=== PATIENT | female | born 1995 | race Caucasian/White ===

== ENCOUNTER 2021-04-26 15:24 | Emergency (ER) | payer MEDICAID, SELFPAY ==
[2021-04-26 15:31] VITALS: BP 145/99; PULSE 112; RESP 18; TEMP 36.7; O2SAT 98; BMI 24.1
--- NOTE | 2021-04-26 16:06 | CTR_ITS ---
PROCEDURE INFORMATION: Exam: CT Abdomen And Pelvis With Contrast Exam date and time: 04/26/2021 4:06 PM Age: 26 years old Clinical indication: Generalized; Patient HX: Lower abdominal pain with nausea and vomiting x8 days; Additional info: Lower abd pain, significant n/v TECHNIQUE: Imaging protocol: Computed tomography of the abdomen and pelvis with contrast. Radiation optimization: All CT scans at this facility use at least one of these dose optimization techniques: automated exposure control; mA and/or kV adjustment per patient size (includes targeted exams where dose is matched to clinical indication); or iterative reconstruction. Contrast material: OMNI 300; Contrast volume: 95 ml; Contrast route: INTRAVENOUS (IV); COMPARISON: No relevant prior studies available. RADIATION DOSE METRICS: Total DLP (mGy-cm): 952.06 FINDINGS: Liver: Normal. No mass. Gallbladder and bile ducts: Normal. No calcified stones. No ductal dilation. Pancreas: Normal. No ductal dilation. Spleen: Normal. No splenomegaly. Adrenal glands: Normal. No mass. Kidneys and ureters: Normal. No hydronephrosis. Stomach and bowel: Unremarkable. No obstruction. No mucosal thickening. Appendix: The appendix is not visualized; however, no inflammatory changes or fluid are seen at the tip of the cecum to suggest appendicitis. Intraperitoneal space: Unremarkable. No free air. No significant fluid collection. Vasculature: Unremarkable. No abdominal aortic aneurysm. Lymph nodes: Unremarkable. No enlarged lymph nodes. Urinary bladder: Unremarkable as visualized. Reproductive: The uterus and ovaries appear normal. Bones/joints: Unremarkable. No acute fracture. Soft tissues: Unremarkable. CT/CT abdomen pelvis w con* [id number] IMPRESSION: No acute abnormality is seen in the abdomen or pelvis.
--- NOTE | 2021-04-26 16:08 | W.ED.GENADLT ---
HPI - General Adult General: Chief complaint: Abdominal Pain Stated complaint: ABD Pains, vomiting Time Seen by Provider: 04/26/21 15:43 History of Present Illness: Patient is a 26-year-old female with prior history of heroin and fentanyl use who presents the emergency room for evaluation of lower abdominal pain times a day. 5 days ago patient was seen at another hospital was diagnosed with gastritis. Since then, patient continues to have persistent lower abdominal pain with nausea and vomiting. Patient denies any diarrhea, melena/medic easier. Patient has no fever or chills. Patient thinks that symptoms started shortly after eating [place] food. Patient denies any recent drug use. Patient has not had any withdrawal symptoms from opiate. Last opiate use was over 30 days ago. Denies any other drug ingestions at this time. No other focal complaints including decreased p.o. intake, chest pain, shortness breath palpitation or lightheadedness. Denies any urinary symptoms. No history kidney stone. No prior abdominal surgery. No new vaginal discharge. Patient does not think she is . Last test was 3 days ago which was negative. Onset:8 days ago Duration:8 days Location:home Severity:moderate Associated symptoms: Reports nausea and vomiting; Deny chest pain, dyspnea, rash or palpitations Review of Systems Const: Denies: fever(s) or chills Eyes: Denies: change in vision ENMT: Denies: mouth pain Card: Denies: chest pain or palpitations Resp: Denies: dyspnea or non-productive cough GI: Reports: abdominal pain, nausea and vomiting; Denies: diarrhea : Denies: dysuria Musc: Denies: extremity pain Skin/Breast: Denies: rash or new lesions Neuro: Denies: weakness in extremities Psych: Reports: other (Normal mood) Alex/Lymph: Denies: easy bruising PFSH ED PFSH: Medical History (Updated 04/26/21 @ 16:14 by Rosie Griggs MD) No active medical problems Social History (Updated 04/26/21 @ 16:11 by Rosie Griggs MD) Smoking and tobacco status: never smoked Alcohol intake: never Substance/Drug Use: former Date of last use: opiate Physical Exam Const: COMMON NORMALS: alert HENMT: COMMON NORMALS: atraumatic HEAD & SCALP: atraumatic MOUTH: moist mucous membranes not abnormal Eye: COMMON NORMALS: EOMs intact bilaterally and conjunctivae normal CONJUNCTIVA: Yes conjunctivae normal Neck/C-Spine: COMMON NORMALS: full ROM and supple Resp: COMMON NORMALS: normal respiratory effort and clear to auscultation bilaterally AUSCULTATION: clear to auscultation bilaterally Cardio: COMMON NORMALS: regular rhythm RATE: tachycardic RHYTHM: regular rhythm GI: COMMON NORMALS: Soft to palpation PALPATION: Yes Soft to palpation OTHER: + Moderate tenderness to palpation in the lower abdomen. No guarding rebound, guarding, rigidity. No CVA tenderness to percussion. Neg Chaparro/Neg McBurney's point tenderness, no suprabupic tenderness to palpation. Extremity: COMMON NORMALS: full ROM Neuro: SENSORIUM/ORIENTATION: Yes alert MOTOR EXAM: No Abnormal motor strength present and Other motor observations present (no focal motor deficits) Psych: COMMON NORMALS: speech normal SPEECH: Yes normal speech MOOD & AFFECT: Yes euthymic mood Course Vital Signs: Vital signs: Vital Signs Temperature 98.1 F 04/26/21 15:31 Pulse Rate 86 04/26/21 16:59 Respiratory Rate 20 H 04/26/21 16:59 Blood Pressure 126/86 04/26/21 16:59 Pulse Oximetry 96 04/26/21 16:59 MDM - General Adult Medical Decision Making 26-year-old female with history of prior opiate use over 30 days ago presenting to emergency room with persistent lower abdominal pain nausea vomiting x8 days. Patient denies any diarrhea. On exam, patient appears to be dry and mildly tachycardic patient has moderate tenderness palpation lower abdomen. No guarding or rebound tenderness. Patient received IVF, morphine, Zofran with significant provement symptom. CT of pelvis showed no focal pathologies. Transvaginal US showed no acute findings. Patient tolerated p.o. without any difficulty. Patient received GI cocktail before symptoms are of belly pains were improved. No focal tenderness palpation. HR improved on reassessment after IVF. I have given patient follow up with our telephonic case manager to be seen by our outpatient PCP for abdominal pain. Patient aware of a call from our telephonic case manager to schedule for appointment(s) and verbalizes understanding of the importance of following up. Rx tylenol PRN abd pain, maalox/pepcid PRN dyspepsia, and zofran PRN nausea/vomiting Disposition: Discharge. Patient counseled regarding diagnostic impression, treatment plan. Patient given ED strict return precautions to return for continuation, worsening, or development of new symptoms. Instructed to f/u w/ PCP regarding symptoms today. Patient verbalized understanding. Lab Data : 04/26/21 16:20 04/26/21 16:20 Radiology Impressions Abdomen/Pelvis CT 04/26/21 16:06 IMPRESSION: No acute abnormality is seen in the abdomen or pelvis. Transvaginal US 04/26/21 17:21 IMPRESSION: No acute abnormality is seen. Laboratory Results WBC 11.7 10^3/uL (4.0-10.0) H 04/26/21 16:20 RBC 4.80 10^6/uL (4.1-5.3) 04/26/21 16:20 Hgb 13.3 g/dL (11.5-15.3) 04/26/21 16:20 Hct 41.0 % (37.0-47.0) 04/26/21 16:20 MCV 85.4 fl (81-99) 04/26/21 16:20 MCH 27.7 pg (28.0-34.0) L 04/26/21 16:20 MCHC 32.4 g/dL (30.0-36.0) 04/26/21 16:20 RDW 15.6 % (12.1-15.1) H 04/26/21 16:20 Plt Count 476 10^3/cmm (130-400) H 04/26/21 16:20 MPV 9.9 fL (7.4-10.4) 04/26/21 16:20 Neut % (Auto) 70.5 % 04/26/21 16:20 Lymph % (Auto) 23.1 % 04/26/21 16:20 [place] % (Auto) 5.2 % 04/26/21 16:20 Eos % (Auto) 0.4 % 04/26/21 16:20 Baso % (Auto) 0.5 % 04/26/21 16:20 Neut # (Auto) 8.22 10^3/uL (1.8-7.7) H 04/26/21 16:20 Lymph # (Auto) 2.7 10^3/uL (0.8-4.8) 04/26/21 16:20 [place] # (Auto) 0.6 10^3/uL (0.2-0.9) 04/26/21 16:20 Eos # (Auto) 0.1 10^3/uL (0.0-0.8) 04/26/21 16:20 Baso # (Auto) 0.1 10^3/uL (0.0-0.1) 04/26/21 16:20 Nucleated RBC % (auto) 0 % 04/26/21 16:20 Nucleated RBCs # 0.0 /100WBC 04/26/21 16:20 Sodium 141 mmol/L (136-145) 04/26/21 16:20 Potassium 3.8 mmol/L (3.5-5.1) 04/26/21 16:20 Chloride 98 mmol/L (98-107) 04/26/21 16:20 Carbon Dioxide 29 mmol/L (22-29) 04/26/21 16:20 Anion Gap 17.8 (5-19) 04/26/21 16:20 BUN 20 mg/dL (6-20) 04/26/21 16:20 Creatinine 0.9 mg/dL (0.5-0.9) 04/26/21 16:20 GFR Calculation 75.7 mL/min (90-130) L 04/26/21 16:20 Glucose 97 mg/dL (65-115) 04/26/21 16:20 Calculated Osmolality 295 mOsm/kg (285-295) 04/26/21 16:20 Calcium 10.4 mg/dL (8.5-10.5) 04/26/21 16:20 Total Bilirubin 0.3 mg/dL (0.15-1.2) 04/26/21 16:20 AST 13 U/L (0-32) 04/26/21 16:20 ALT 13 U/L (0-33) 04/26/21 16:20 Alkaline Phosphatase 104 IU/L (35-105) 04/26/21 16:20 Total Protein 8.5 g/dL (6.6-8.7) 04/26/21 16:20 Albumin 5.2 g/dL (3.5-5.2) 04/26/21 16:20 Globulin 3.3 g/dL (1.3-4.6) 04/26/21 16:20 Lipase 63 U/L (13-60) H 04/26/21 16:20 HCG, Qual Negative (Negative) 04/26/21 16:20 Imaging Data Other Imaging: Radiologist's impression: [facility] [address] [place] [address] Ultrasound Report Signed Patient: Lupe Mi Unit #: [id number] : 1995 Age/Sex: 26 / F ADM Date: 04/26/21 Loc: ER Room/Bed: Attending Dr: Ordering Provider/Ordering MD: Rosie Griggs MD Date of Service: 04/26/21 Procedure(s): US transvaginal [id number] Accession Number(s): [id number] Report Number: [id number] PROCEDURE INFORMATION: Exam: US Pelvis, Transvaginal Exam date and time: 04/26/2021 5:21 PM Age: 26 years old Clinical indication: Pelvic pain; Additional info: Eval for torsion and infection TECHNIQUE: Imaging protocol: Real-time transvaginal pelvic ultrasound with image documentation. Transvaginal imaging was used for better evaluation of the endometrium, adnexa, and/or cervix. COMPARISON: CT abdomen pelvis w con* [id number] 04/26/2021 5:07 PM FINDINGS: Uterus: The uterus appears normal measuring 6.6 x 2.8 x 3.5 cm. The endometrium measures 0.58 cm in thickness. Right ovary/adnexa: The right ovary appears normal measuring 3.7 x 3.6 x 1.3 cm. Normal blood flow. Left ovary/adnexa: The left ovary appears normal measuring 2.7 x 2.6 x 1.8 cm. Normal blood flow. Intraperitoneal space: No free fluid. US/US transvaginal [id number] IMPRESSION:? No acute abnormality is seen. ? Dictated By: Moses Richard MD Signed By: Moses Richard MD Signed Date/Time: 04/26/211757 DD/ 1721 [facility] [address] [place] [id number] Scan Report Signed Patient: Lupe Mi Unit #: [id number] : 1995 Age/Sex: 26 / F ADM Date: 04/26/21 Loc: ER Room/Bed: Attending Dr: Ordering Provider/Ordering MD: Rosie Griggs MD Date of Service: 04/26/21 Procedure(s): CT abdomen pelvis w con* [id number] Accession Number(s): [id number] Report Number: [id number] PROCEDURE INFORMATION: Exam: CT Abdomen And Pelvis With Contrast Exam date and time: 04/26/2021 4:06 PM Age: 26 years old Clinical indication: Generalized; Patient HX: Lower abdominal pain with nausea and vomiting x8 days; Additional info: Lower abd pain, significant n/v TECHNIQUE: Imaging protocol: Computed tomography of the abdomen and pelvis with contrast. Radiation optimization: All CT scans at this facility use at least one of these dose optimization techniques: automated exposure control; mA and/or kV adjustment per patient size (includes targeted exams where dose is matched to clinical indication); or iterative reconstruction. Contrast material: OMNI 300; Contrast volume: 95 ml; Contrast route: INTRAVENOUS (IV);? COMPARISON: No relevant prior studies available. RADIATION DOSE METRICS: Total DLP (mGy-cm): 952.06 FINDINGS: Liver: Normal. No mass. Gallbladder and bile ducts: Normal. No calcified stones. No ductal dilation. Pancreas: Normal. No ductal dilation. Spleen: Normal. No splenomegaly. Adrenal glands: Normal. No mass. Kidneys and ureters: Normal. No hydronephrosis. Stomach and bowel: Unremarkable. No obstruction. No mucosal thickening. Appendix: The appendix is not visualized; however, no inflammatory changes or fluid are seen at the tip of the cecum to suggest appendicitis. Intraperitoneal space: Unremarkable. No free air. No significant fluid collection. Vasculature: Unremarkable. No abdominal aortic aneurysm. Lymph nodes: Unremarkable. No enlarged lymph nodes. Urinary bladder: Unremarkable as visualized. Reproductive: The uterus and ovaries appear normal. Bones/joints: Unremarkable. No acute fracture. Soft tissues: Unremarkable. CT/CT abdomen pelvis w con* [id number] IMPRESSION:? No acute abnormality is seen in the abdomen or pelvis. ? Dictated By: Moses Richard MD Signed By: Moses Richard MD Signed Date/Time: 04/26/21 9990 Discharge Plan Discharge Patient Disposition: Home Clinical Impression: Abdominal pain, Nausea & vomiting Prescriptions: New Zofran 4 mg tablet 4 mg PO TID PRN (Reason: nausea and vomiting) 4 Days Qty: 12 0RF acetaminophen 500 mg tablet 500 mg PO Q6H PRN (Reason: pain) 5 Days Qty: 20 0RF Pepcid 20 mg tablet 20 mg PO BID PRN (Reason: abdominal pain) 10 Days Qty: 20 0RF Maalox Advanced 1,000-60 mg tablet,chewable 1 tab PO TID PRN (Reason: abdominal pain) 7 Days Qty: 21 0RF No Action naltrexone 50 mg Tablet 25 mg PO BID 0RF hydroxyzine pamoate 50 mg Capsule 50 mg PO TID PRN (Reason: Anxiety) 0RF ketorolac 10 mg Tablet 10 mg PO Q6H PRN (Reason: Pain) 0RF baclofen 10 mg Tablet 10 mg PO BEDTIME PRN (Reason: Muscle Spasm) 0RF mirtazapine 45 mg Tablet 45 mg PO BEDTIME 0RF ondansetron 4 mg Tablet,Disintegrating 4 mg PO Q8H PRN (Reason: Nausea) 0RF Discharge Orders: Discharge ED (Routine); Ordered 04/26/21 Ordered By: Rosie Griggs Discharge Diet: Advance as tolerated Discharge Activity: Increase activity as tolerated Patient Instructions: Abdominal Pain (ED), Opioid Safety Activity Restrictions/Additional Instructions: Please come back if you have any worsening abdominal pain, fever or chills, nausea or vomiting, diarrhea, blood in the stool, inability hold down liquid or solids, or any new concerning complaints. 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
[2021-04-26 16:35] LABS: Basophils # 0.1 10^3/uL (0.0-0.1); Basophils % 0.5 %; Eosinophils # 0.1 10^3/uL (0.0-0.8); Eosinophils % 0.4 %; Hemoglobin 13.3 g/dL (11.5-15.3); Lymphocytes # 2.7 10^3/uL (0.8-4.8); Lymphocytes % 23.1 %; Mean Corpuscular HGB Conc 32.4 g/dL (30.0-36.0); Mean Corpuscular Hemoglobin 27.7 pg (28.0-34.0); Mean Corpuscular Volume 85.4 fl (81-99); Mean Platelet Volume 9.9 fL (7.4-10.4); Monocytes # 0.6 10^3/uL (0.2-0.9); Monocytes % 5.2 %; Neutrophils # 8.22 10^3/uL (1.8-7.7); Neutrophils % 70.5 %; Nucleated Red Blood Cells % 0 %; Platelet Count 476 10^3/cmm (130-400); Red Cell Distribution Width 15.6 % (12.1-15.1); White Blood Count 11.7 10^3/uL (4.0-10.0)
[2021-04-26] MEDS: sodium chloride 0.9% 1,000 ML 999 ML IV (16:46)
[2021-04-26] MEDS: ondansetron 2 mg/ML SDV 2 mL 4 MG IVP (16:47)
[2021-04-26] MEDS: famotidine 20 mg/2 mL INJ IVP (16:47)
[2021-04-26 16:50] LABS: HCG, Serum Qual Negative (Negative)
[2021-04-26 16:57] LABS: Alanine Aminotransferase 13 U/L (0-33); Albumin Level 5.2 g/dL (3.5-5.2); Alkaline Phosphatase 104 IU/L (35-105); Anion Gap 17.8 (5-19); Aspartate Amino Transferase 13 U/L (0-32); Blood Urea Nitrogen 20 mg/dL (6-20); Calcium 10.4 mg/dL (8.5-10.5); Carbon Dioxide 29 mmol/L (22-29); Chloride 98 mmol/L (98-107); Globulin 3.3 g/dL (1.3-4.6); Glomerular Filtration Rate 75.7 mL/min (90-130); Glucose 97 mg/dL (65-115); Lipase 63 U/L (13-60); Osmolality Calculated 295 mOsm/kg (285-295); Potassium 3.8 mmol/L (3.5-5.1); Sodium 141 mmol/L (136-145); Total Bilirubin 0.3 mg/dL (0.15-1.2); Total Protein 8.5 g/dL (6.6-8.7)
[2021-04-26 16:59] VITALS: BP 126/86; PULSE 86; RESP 20; O2SAT 96
[2021-04-26] MEDS: iohexol 300 mg/mL 100 mL Btl IV (17:06)
--- NOTE | 2021-04-26 17:21 | USR_ITS ---
PROCEDURE INFORMATION: Exam: US Pelvis, Transvaginal Exam date and time: 04/26/2021 5:21 PM Age: 26 years old Clinical indication: Pelvic pain; Additional info: Eval for torsion and infection TECHNIQUE: Imaging protocol: Real-time transvaginal pelvic ultrasound with image documentation. Transvaginal imaging was used for better evaluation of the endometrium, adnexa, and/or cervix. COMPARISON: CT abdomen pelvis w con* [id number] 04/26/2021 5:07 PM FINDINGS: Uterus: The uterus appears normal measuring 6.6 x 2.8 x 3.5 cm. The endometrium measures 0.58 cm in thickness. Right ovary/adnexa: The right ovary appears normal measuring 3.7 x 3.6 x 1.3 cm. Normal blood flow. Left ovary/adnexa: The left ovary appears normal measuring 2.7 x 2.6 x 1.8 cm. Normal blood flow. Intraperitoneal space: No free fluid. US/US transvaginal [id number] IMPRESSION: No acute abnormality is seen.
[2021-04-26] MEDS: lidocaine 2% viscous 15 ML, aluminum-mag hydrox-simethicon 30 ML, sucralfate oral liq 1 GM PO (18:30)
--- NOTE | 2021-04-26 18:48 | PC.NURSE ---
pt drank sprite and ate crackers, pt did not vomit or dry heaving durring this ed stay
[2021-04-26 18:51] VITALS: BP 106/69; PULSE 80; RESP 20; O2SAT 99
== END 2021-04-26 18:57 | disposition home or self-care (01) ==
PROVIDERS: Emergency Provider Emergency Medicine
DX: R10.9 Unspecified abdominal pain (principal); R11.2 Nausea with vomiting, unspecified
CPT/HCPCS: 74177; 76830; 80053; 83690; 84703; 85025; 96361; 96374; 96375; 99284; J2405; J3490; J7030; Q9967